=== PATIENT | female | born 1965 | race Caucasian/White ===

== ENCOUNTER 2022-12-24 18:36 | Emergency (ER) | payer BC ==
--- OUTSIDE RECORDS SUMMARY | 2022-12-24 18:39 | XMS REPORT | Continuity of Care Document ---
:1965 Author Organization [facility] t Address [address] [place] [id number] Care Team Providers Name Role Phone Bell Del Cid Attending Clinician Unavailable Ellen Attending Clinician Unavailable Referred, Self Attending Clinician Unavailable Antonia Gudino Attending Clinician [phone] Ameya Nagy Attending Clinician Unavailable Bell Del Cid Attending Clinician [phone] Ameya Nagy Admitting Clinician Unavailable Ellen Admitting Clinician Unavailable Tramaine Arroyo Admitting Clinician Unavailable Physician, No Primary or Family Admitting Clinician Unavaila ble Payers Payer Name Policy Type Policy Number Effective Date Expiration Date [place] [id number] 2022 00:00:00 [place] Problems Condition Condition Condition Status Onset Resolution Last Treating Co mments Source Name Details Category Date Date Treatment Clinician Date Constipati Constipati Problem Active 2020-06 [facility] 00:00: 00 Bladder Bladder Problem Active 2020-06 [facility] muscle Muscle 2-10 Medical dysfunctio Dysfunctio 00:00: n - n - 00 overactive Overactive Allergies, Adverse Reactions, Alerts Allergy Allergy Status Severity Reaction(s) Onset Inactive Treating Comm ents Source Name Type Date Date Clinician No Known DA Active U [facility] [place] [facility] No Known DA Active [facility] Cont[facility] 01-18 [facility] No Known DA Active U [facility] Drug 01-18 [facility] No Known DA Active U [facility] Food 01-18 [facility] No Known DA Active U [facility] Other 01-18 [facility] No Known DA Active U [facility] Drug 12-16 [facility] 00:[facility]: [facility] SEASONAL Allergy Active Mild Headache [facility] (91) to Medical substanc e Social History Smoking Status Start Date Stop Date Source Never Smoker [facility] Medications Ordered Filled Start Stop Current Ordering Indication Dosage Frequency Signature Comments Components Source Medication Medication Date Date Medication? Clinician (SIG) Name Name biotin biotin No biotin [facility] Calcium 500 Calcium 500 No Calcium [facility] 500 [facility] estradiol 2 estradiol 2 No 1 Q1D estradiol [facility] mg tablet 1 mg tablet 1 2 mg M edical tablet tablet tablet 1 every day every day tablet by oral by oral every day route. route. by oral route. Gemtesa 75 Gemtesa 75 No 1 Q1D Gemtesa 75 [facility] mg tablet mg tablet mg tablet Medical Take 1 Take 1 Take 1 tablet tablet tablet every day every day every day by oral by oral by oral route for route for route for 90 days. 90 days. 90 days. iron 65 mg iron 65 mg No 1 Q56H iron 65 mg [facility] tablet Take tablet Take tablet Medical 1 tablet 3 1 tablet 3 Take 1 times a times a tablet 3 week by week by times a oral route. oral route. week by oral route. multivitami multivitami No multivitam [facility] n in Medical progesteron progesteron No progestero [facility] e e ne Medical micronized micronized micronized 100 mg 100 mg 100 mg capsule capsule capsule terbinafine terbinafine No terbinafin [facility] HCl 250 mg HCl 250 mg e HCl 250 Medical tablet tablet mg tablet Vitamin D2 Vitamin D2 No Vitamin D2 [facility] 1,250 mcg 1,250 mcg 1,250 mcg Medical (50,000 (50,000 (50,000 unit) unit) unit) capsule capsule capsule Take by Take by Take by oral route. oral route. oral route. Zyrtec 10 Zyrtec 10 No 1capsul Q1D Zyrtec 10 [facility] mg capsule mg capsule e(s) mg capsule Medical Take 1 Take 1 Take 1 capsule capsule capsule every day every day every day by oral by oral by oral route. route. route. biotin biotin No biotin [facility] Calcium 500 Calcium 500 No Calcium [facility] 500 [facility] estradiol 2 estradiol 2 No 1 Q1D estradiol [facility] mg tablet 1 mg tablet 1 2 mg M edical tablet tablet tablet 1 every day every day tablet by oral by oral every day route. route. by oral route. Gemtesa 75 Gemtesa 75 No 1 Q1D Gemtesa 75 [facility] mg tablet mg tablet mg tablet Medical Take 1 Take 1 Take 1 tablet tablet tablet every day every day every day by oral by oral by oral route for route for route for 90 days. 90 days. 90 days. iron 65 mg iron 65 mg No 1 Q56H iron 65 mg [facility] tablet Take tablet Take tablet Medical 1 tablet 3 1 tablet 3 Take 1 times a times a tablet 3 week by week by times a oral route. oral route. week by oral route. multivitami multivitami No multivitam [facility] in Medical progesteron progesteron No progestero [facility] ne Medical micronized micronized micronized 100 mg 100 mg 100 mg capsule capsule capsule Vitamin D2 Vitamin D2 No Vitamin D2 [facility] 1,250 mcg 1,250 mcg 1,250 mcg Medical (50,000 (50,000 (50,000 unit) unit) unit) capsule capsule capsule Take by Take by Take by oral route. oral route. oral route. Zyrtec 10 Zyrtec 10 No 1capsul Q1D Zyrtec 10 [facility] mg capsule mg capsule e(s) mg capsule Medical Take 1 Take 1 Take 1 capsule capsule capsule every day every day every day by oral by oral by oral route. route. route. biotin biotin No biotin [facility] Calcium 500 Calcium 500 No Calcium [facility] 500 Medical estradiol 2 estradiol 2 No 1 Q1D estradiol [facility] mg tablet 1 mg tablet 1 2 mg M edical tablet tablet tablet 1 every day every day tablet by oral by oral every day route. route. by oral route. Gemtesa 75 Gemtesa 75 No Gemtesa 75 [facility] mg tablet mg tablet mg tablet Medical Take 1 Take 1 Take 1 tablet tablet tablet every day every day every day by oral by oral by oral route for route for route for 90 days. 90 days. 90 days. hydrocodone hydrocodone No hydrocodon [facility] 5 5 e 5 Medical mg-acetamin mg-acetamin mg-acetami ophen 325 ophen 325 nophen 325 mg tablet mg tablet mg tablet iron 65 mg iron 65 mg No 1 Q56H iron 65 mg [facility] tablet Take tablet Take tablet Medical 1 tablet 3 1 tablet 3 Take 1 times a times a tablet 3 week by week by times a oral route. oral route. week by oral route. multivitami multivitami No multivitam [facility] n n in Medical progesteron progesteron No progestero [facility] e [facility] ne Medical micronized micronized micronized 100 mg 100 mg 100 mg capsule capsule capsule Vitamin D2 Vitamin D2 No Vitamin D2 [facility] 1,250 mcg 1,250 mcg 1,250 mcg Medical (50,000 (50,000 (50,000 unit) unit) unit) capsule capsule capsule Take by Take by Take by oral route. oral route. oral route. Zyrtec 10 Zyrtec 10 No 1capsul Q1D Zyrtec 10 [facility] mg capsule mg capsule e(s) mg capsule Medical Take 1 Take 1 Take 1 capsule capsule capsule every day every day every day by oral by oral by oral route. route. route. Vital Signs Vital Name Observation Time Observation Value Comments Source BP Systolic 2021-11-17 00:00:00 129 mm[Hg] [facility] Body Weight 2021-11-17 00:00:00 163 [lb_av] [facility] BP Diastolic 2021-11-17 00:00:00 75 mm[Hg] [facility] Height 2021-11-17 00:00:00 65 [in_i] [facility] BMI (Body Mass Index) 2021-11-17 00:00:00 27.1 kg/m2 [facility] BP Diastolic 2021-07-02 00:00:00 75 mm[Hg] [facility] Height 2021-07-02 00:00:00 65 [in_i] [facility] BMI (Body Mass Index) 2021-07-02 00:00:00 23.6 kg/m2 [facility] Systolic 2021-07-02 00:00:00 136 mm[Hg] [facility] Body Weight 2021-07-02 00:00:00 142 [lb_av] [facility] BP Diastolic 2021-05-29 00:00:00 86 mm[Hg] [facility] Height 2021-05-29 00:00:00 65 [in_i] [facility] BMI (Body Mass Index) 2021-05-29 00:00:00 28.3 kg/m2 [facility] BP Systolic 2021-05-29 00:00:00 127 mm[Hg] [facility] Body Weight 2021-05-29 00:00:00 170 [lb_av] [facility] Procedures Procedure Date / Time Performed Performing Clinician Sour e Cytourethroscopy (Surg) 2021-10-29 00:00:00 [facility] Gastric Bypass for Obesity 2015-06-20 00:00:00 [facility] Breast Surgery - Reduction 2006-12-18 00:00:00 [facility] Breast Biopsy [facility] Plan of Care Planned Activity Planned Date Details Comments Source Diagnostic Test 2021-05-29 00:00:00 culture, urine [code [facility] Pending = culture, urine] Diagnostic Test 2021-05-29 00:00:00 urinalysis, complete [facility] Pending [code = urinalysis, complete] Encounters Start End Encounter Admission Attending Care Care Encounter Source Date/Time Date/Time Type Type Clinicians Facility Department ID 2021-08-18 [id number] 14:44:00 [place] [address] [facility] 2022-11-29 2022-11-29 Outpatient [facility] PRIV PRIV [id number] [facility] 00:00:00 00:00:00 _Cathey [id number] Medica l 2022-11-27 2022-11-27 Outpatient [facility] PRIV PRIV [id number] [facility] 00:00:00 00:00:00 _Cathey [id number] Medica l 2022-11-16 2022-11-16 Outpatient [facility] PRIV PRIV [id number] [facility] 00:00:00 00:00:00 _[place]athe[place] [id number] Medica l 2022-11-16 2022-11-16 Outpatient [facility] PRIV PRIV 231 [id number] [facility] 00:00:00 00:00:00 _[place]athe[place] [id number] Medica l 2022-11-12 2022-11-12 Outpatient [facility] PRIV PRIV [id number] [facility] 00:00:00 00:00:00 _Cathey [id number] Medica l 2022-11-09 2022-11-09 Outpatient [facility] PRIV PRIV 231 [id number] [facility] 00:00:00 00:00:00 _Cathey [id number] Medica l 2022-10-15 2022-10-15 Outpatient [facility] PRIV PRIV [id number] [facility] 00:00:00 00:00:00 _Cathey [id number] Medica l 2022-10-15 2022-10-15 Outpatient [facility] PRIV PRIV [id number] [facility] 00:00:00 00:00:00 _[place]athey [id number] Medica l 2022-07-19 2022-07-19 Outpatient EL Referred, HCAPM ANNETTA [id number] [facility] 12:00:00 12:00:[address] 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 [phone] 2021-11-13 2021-11-13 Outpatient [facility] PRIV PRIV [id number] [facility] 12:46:00 12:46:00 _Cathey [id number] Medica l 2021-10-29 2021-10-30 Inpatient Ameya Murrieta [facility] MEDI.01 [id number] [facility] 07:17:00 11:43:00 [facility] 2021-10-19 2021-10-19 Outpatient [facility] PRIV PRIV [id number] [facility] 05:08:00 05:08:00 _Cathey [id number] Medica l 2021-10-13 2021-10-13 Outpatient [facility] PRIV PRIV [id number] [facility] 05:51:00 05:51:00 _Cathey [id number] Medica l 2021-07-27 2021-08-17 [facility] [id number] 08:59:00 00:00:00 Bell [facility] 2021-07-14 2021-07-20 Outpatient BERTHA Del Cid [facility] [id number] [facility] 10:52:00 00:00:00 Bell [facility] 2021-07-18 2021-07-18 Outpatient [facility] PRIV PRIV [id number] [facility] 04:52:00 04:52:00 _Cathey [id number] Medica l 2021-07-16 2021-07-16 Outpatient Ameya Murrieta [facility] ANNET[place] LA0 [id number] [facility] 12:00:00 12:00:[address] [facility] 2021-07-03 2021-07-03 Outpatient [facility] PRIV PRIV [id number] [facility] 10:44:00 10:44:00 _Cathey [id number] Medica l 2021-07-02 2021-07-02 Outpatient [facility] PRIV PRIV [id number] [facility] 01:59:00 01:59:00 _Cathey [id number] Medica l 2021-07-02 2021-07-02 Outpatient Maria Eugenia, PRIV PRIV [id number] 00:00:00 00:00:00 Bell [id number] Marci [id number] 2021-07-02 2021-07-02 Bell [facility] 00:00:00 00:00:00 [facility] Maria Eugenia, [facility] : [address], [address]* [address], [place] [address] , Ph. [phone] 2021-07-01 2021-07-01 Outpatient [facility] PRIV PRIV [id number] [facility] 03:10:00 03:10:00 _Cathey [id number] Medica l 2021-06-27 2021-06-27 Outpatient [facility] PRIV PRIV [id number] [facility] 11:30:00 11:30:00 _Cathey [id number] Medica l 2021-06-04 2021-06-04 Inpatient Ameya Murrieta [facility] [id number] [facility] 10:00:00 10:00:00 [facility] 2021-06-04 2021-06-04 Outpatient [facility] PRIV PRIV [id number] [facility] 02:53:00 02:53:00 _Cathey [id number] Medica l 2021-05-29 2021-05-29 Outpatient [facility] PRIV PRIV [id number] [facility] 12:38:00 12:38:00 _Cathey [id number] Medica l 2021-05-29 2021-05-29 Bell [facility] [id number] [facility] 00:00:00 00:00:00 [facility] Maria Eugenia, [facility] : [address], Office* [address], [place] [address] , Ph. [phone] 2021-05-29 2021-05-29 Outpatient Maria Eugenia, PRIV PRIV [id number] 00:00:00 00:00:00 Bell [id number] Amrci [id number] 2021-05-28 2021-05-28 Outpatient [facility] PRIV PRIV [id number] [facility] 12:02:00 12:02:00 _Claudetteaddie [id number] Medica l 2021-05-25 2021-05-25 [place] [id number] [facility] 12:37:00 12:37:00 _Claudetteaddie [id number] Medica l 2020-07-14 2020-07-14 Outpatient Ameya Murrieta [facility] [place] LA0 [id number] [facility] 12:00:00 12:00:[address] [facility] 2019-07-09 2019-07-09 Outpatient Ameya Murrieta [facility] [place]0 [id number] [facility] 12:00:00 12:00:[address] [facility] Results Test Description Test Time Test Comments Results Result Comments Source SURGICAL 2021-10-30 16:45:00 Test Item Value Reference Range Interpretation Commraul nts SURGICAL RUN (test DATE: 10/30/21 [facility] PAGE 1 RUN TIME: 1645 Specimen Inquiry RUN USER: INTERFACE code = JOANNE EM) NT: ALFREDO RANGEL LOC: JHON U #: [id number] AGE/SX: 55/F ROOM: [facility] RE10/29/21REG DR: Arianna Nagy III, MD : 67 BED: A DIS: 10/30/21 STATUS: DIS Johan TLOC: SPEC #: [id number] RECD: 10/18 STATUS: ALINE AN #: [id number] MICHAELA: 10/29/[address] [facility] [address]: Ameya aNgy III, MD ENTERED: 10/29/21 SP TYPE: SURGICAL OTHR DR: Tramaine Arroyo MD ORDERED: ANATOMIC SPEC, SPEC TRACK, [id number] COPIES TO: Ameya Nagy III, MD [address] [facility] [address] [place] [address] Marva Arroyo MD [address] [facility] [address] [place] [address] PROCEDURES: [id number] (10/30/21- 160) TISSUES: A. UTERUS - UTERUS, CERVIX, BILATERL TUBES OVARIES FINAL DIAGNOSIS UTERUS, CERV IX, BILATERAL TUBES AND OVARIES, HYSTERECTOMY WITH BILATERAL SALPINGOOOPHORECTOMY:- 129 g ahmet uterus- disordered proliferative endometrium; negative for hyperplasia or malignancy-ex tensive adenomyosis- leiomyomata, 1.1 cm and 2.1 cm each (subserosal and intramural)- mild chroni c cervicitis; negative for dysplasia or malignancy- bilateral ovaries with corpora albicantia and physiologic changes-bilateral fallopian tubes with marked congestion, edema and reactive changes G JIAN DESCRIPTION Specimen received in formalin, labeled with patient's name, MRN, date of and uterus,cervix, bilateral tubes and ovaries. Specimen consists of a hysterectomy s pecimen withbilateral adnexa weighing in aggregate 129 g. Uterus is 9.1 cm in length from fundus todistal most portion of ectocervix, 4.9 cm in maximum cornu to cornu with and 4.1 cmanterop osteriorly. Is serosa is matias-brown smooth. Uterine contour is slightly distortedby bulging nodule. Cervix is 3.1 cm in length, os is slit- like and 1.6 cm across. Mucosaat the ectocer vix is congested. Right fallopian tube with fimbria is 5.7 cm in length andup to 0.5 cm in di ameter. Serosa is matias-brown to dark red smooth. Sectioning reveals apatent lumen. Right ovary i s matias-pink firm measuring 2.1 x 1.5 x 1.1 cm in maximumdimensions. Sectioning reveals matias-pink and focally yellow surface. Left fallopian tubewith fimbria is 6.1 cm in length and up to 0.5 cm i n diameter. Serosa is matias-brown to darkred smooth. Sectioning reveals a patent lumen. A 1.1 cm in greatest dimension soft matias CONTINUED ON NEXT PAGE RUN DATE: 10/30/21 [facility] PAGE 2 RUN TIME: 1645 Specimen Inquiry RUN USER: INTERFACE SPEC #: [id number] PATIENT: DANILOALFREDO SHERRIE #[id number] (Continued) ------ GROSS DESCRIPTION (Co ntinued) paratubal cyst noted containing clear fluid. Cyst is thin-walled. Left ovary is matias pinkfrom measuring 2.1 x 1.2 x 0.9 cm in maximum dimensions. Sectioning reveals matias pink andfocally pale surface. Cervical canal has a matias rugated appearance. Endometrial cavity is4.3 cm in length and 1.7 cm in maximum width. Endometrium is matias-pink smooth and 0.1 cm inthickness. Endo metrial cavity is distorted by a well-circumscribed matias-white firm nodules.Two well-circumscrib ed firm matias- white nodules noted measuring 1.1 cm and 2.1 cm ingreatest dimension. Cut humphreys rfaces are matias whorled. Nodules are subserosal and intramural. Myometrium is matias-pink and u p to 1.5 cm in thickness. Manager Lan sections of uteruswith entire bilateral adnexa are submitted as follows: A1 anterior cervix A2 posterior cervix A3 anterior endomyometrium A4 p osterior endomyometrium A5 smaller nodule A6 larger nodule A7-A14 right fallopian tube and ova [id number] left fallopian tube and ovaryTechnical component performed at [facility],[address], [place] [address] Unless gross only, the diagnosis is based upon microscopic examination .Immunohistochemistry: This test was developed and its performance characteristicsdetermined by this laboratory. It has not been approved nor does it need approval by [place] FDA. Appropriate po sitive and negative controls are reviewed and judged to beacceptable. This laboratory is certified under the Clinical Laboratory ImprovementAmendments (CLIA-88) as qualified to perform high co mplexity clinical laboratory testing. CLINICAL INFORMATION 10/29/21, OUT OF BODY @ 0840, IN FORMA ROMAN 0907, MENORRHAGIA, PELVIC PAIN, FAMILY HISTORY OFOVARIAN CANCER. -- Signed SIGNATURE ON FILE Heavenly Gary 10/30/21 1645 END OF REPORT [facility] [id number] 05:27:00 Test Item Value Reference Range Interpretation Comments HEMOGLOBIN (test code = HGB) 10.9 g/dL 10.1-13.8 N HEMATOCRIT (test code = HCT) 32.2 % 32.5-41.8 L AB HIV 1 21:07:00 Test Item Value Reference Range Interpretation Comments AB HIV 1 2 (test NONREACTIVE NONREACTIVE Done by [facility] [employer] code = [id number]) 4th Gen HIV Ag/Ab Combo Screen BASIC METABOLIC [id number] 16:06:00 Test Item Value Reference Range Interpretation Comments SODIUM (test code = NA) 139 mEq/L 135-145 N POTASSIUM (test code = K) 4.5 mEq/L 3.5-5.0 N CHLORIDE (test code = CL) 102 mEq/L 100-115 N CARBON DIOXIDE (test code = CO2) 27 mEq/L 22-31 N ANION GAP (test code = GAP) 14.30 10-20 N GLUCOSE (test code = GLU) 71 mg/dL 65-110 N BLOOD UREA NITROGEN (test code = 12 mg/dL 7-18 N BUN) CREATININE (test code = CREAT) 0.7 mg/dL 0.5-1.0 N CALCIUM (test code = CA) 8.9 mg/dL 8.4-10.2 N GLOMERULAR FILTRATION RATE (test 87 ml/min >60 N code = GFR) HCG SERUM [id number] 16:06:00 Test Item Value Reference Range Interpretation Comments HCG SERUM QUAL (test code = HCGQL) NEGATIVE CBC W/AUTO [id number] 15:59:00 Test Item Value Reference Range Interpretation Comments WHITE BLOOD CELL (test code = WBC) 7.7 K/mm3 6.5-12.3 N RED BLOOD CELL (test code = RBC) 4.22 M/mm3 3.51-4.69 N HEMOGLOBIN (test code = HGB) 12.3 g/dL 10.1-13.8 N HEMATOCRIT (test code = HCT) 38.5 % 32.5-41.8 N MEAN CELL VOLUME (test code = MCV) 91.2 fL 84.6-96.6 N MEAN CELL HGB (test code = MCH) 29.1 pg 27.3-33.9 N MEAN CELL HGB CONCETRATION (test 31.9 gm/dL 32.0-34.2 L code = MCHC) RED CELL DISTRIBUTION WIDTH (test 12.6 % 12.2-16.3 N code = RDW) PLATELET COUNT (test code = PLT) 240 K/mm3 134-363 N MEAN PLATELET VOLUME (test code = 12.4 fL 9.2-12.7 N MPV) NEUTROPHIL % (test code = NT%) 60.3 % 57.9-77.3 N LYMPHOCYTE % (test code = LY%) 29.1 % 14.5-29.7 N MONOCYTE % (test code = MO%) 8.0 % 3.6-10.2 N EOSINOPHIL % (test code = EO%) 1.3 % 0.0-3.0 N BASOPHIL % (test code = BA%) 0.9 % 0.1-0.9 N NEUTROPHIL # (test code = NT#) 4.6 K/mm3 LYMPHOCYTE # (test code = LY#) 2.2 K/mm3 MONOCYTE # (test code = MO#) 0.6 K/mm3 EOSINOPHIL # (test code = EO#) 0.10 K/mm3 BASOPHIL # (test code = BA#) 0.1 K/mm3 RBC MORPHOLOGY REQUIRED (test code NORMAL NORMAL = RBCM) PLATELET MORPHOLOGY REQUIRED (test NORMAL NORMAL code = PLTMR) COVID 19 Asymptomatic IH [id number] 13:34:00 Test Item Value Reference Range Interpretation Comments COVID 19 NEGATIVE NEGATIVE This test has b een Asymptomatic IH AG authorize d only for the (test code = detection ofpro teins from COVNONPUIAG) SARS-CoV-2, not for any other viruses orpathogens. Ne gative results should be treated as presumptive andconfirmed wi th a molecular assay , if necessary for patientmanageme nt. Negative result s do not rule out COVID- 19 andshould not b e used as the sole basis for treatment orpat ient management deci sions, including infec tion controldecision s. Negative result s should be considered i n thecontext of a patient's recent exposure s, history and thepresence of clinical signs and symptoms consis tent withCOVID-19. T his test has not been FD A cleared or approved; th e test hasbeen authorsana parker by FDA under an Emerge ncy Use Authorization(E UA) for use by laborato britany certified under the CLIA thatmeet the re quirements to perform mode rate, high or waivedcomple xity tests. This sultana t is authorized for use at thePoint of Car e (POC), i.e., in patien t care settingsoperati ng under a CLIA Certificat e of Waiver, Certifi aimee ofCompliance, o r Certificate of Accreditation. This test is only authori elena for the duration of thedeclaration that circumstances e xist justifying theauthorizatio n of emergency use o f in vitro diagnostic test sfor detection and/o r diagnosis of CO VID-19 under Xewpxls57 4(b)(1) of the Act, 21 U.S .C. 360bbb-3(b)(1), unless theauthorizatio n is terminated or r evoked sooner. URINALYSIS [id number] 13:15:00 Test Item Value Reference Range Interpretation Comments UA COLOR (test code = COLU) YELLOW YELLOW UA APPEARANCE (test code = CLEAR CLEAR APPU) UA GLUCOSE DIPSTICK (test code NEGATIVE NEG = DGLUU) UA BILIRUBIN DIPSTICK (test NEGATIVE NEG code = BILU) UA KETONE DIPSTICK (test code NEGATIVE NEG = KETU) UA SPECIFIC GRAVITY (test code 1.002 1.001-1.035 N = SGU) UA BLOOD DIPSTICK (test code = 1+ NEG A SHAHBAZ) UA PH DIPSTICK (test code = 7.0 5-9 HSARA) UA PROTEIN DIPSTICK (test code NEGATIVE NEG = PROU) UA UROBILINIOGEN DIPSTICK NEGATIVE mg/dL NEG (test code = URO) UA NITRITE DIPSTICK (test code NEG NEG = MARIVEL) UA LEUKOCYTE ESTERASE DIPSTICK NEG NEG (test code = LEUU) UA WBC (test code = WBCU) 0-2 #/hpf NONE SEEN UA RBC (test code = RBCU) 0-2 #/hpf NONE SEEN UA EPITHELIAL CELLS (test code RARE #/HPF RARE-FEW = EPIU) UA BACTERIA (test code = BACU) RARE /HPF RARE-FEW URINE SAMPLE: CLEAN CATCH Notes Date/Time Note Provider Source 2021-10-30 08:43:00-00:00 [facility] Gynecology Post Prog Note REPORT#:[id number] REPORT STATUS: Signed DATE:10/30/21 TIME: 842 PATIENT: ALFREDO RANGEL UNIT #: [id number] ROOM/BED: [facility]-A : 67 AGE: 55 SEX: F ATTEND: Ameya Nagy III, MD ADM AUTHOR: Ameya Nagy III, MD * ALL edits or amendments must be made on the [employer]/computer document * General Post-op: post surgery rounds Status post: [facility] Subjective Patient reports: Yes: ambulating, flatus/felicia l movement, pain controlled, voiding/urinating. No: complaints, abdominal pain, chills, feve r, headache, heartburn, nausea, pelvic pain, tolerating diet, vaginal bleeding, vomitin g. Objective General VS/I O: Last Documented: Result Date Time Pulse Ox 96 10/30 729 B/P 124/71 10/30 729 B/P Mean 88.7 10/30 729 Temp 98.4 10/30 729 Pulse 58 10/30 729 Resp 18 10/30 729 O2 Delivery Room air 10/30 0421 O2 Flow Rate 2 10/29 1115 24 hour I O ending at 0700: 10/29 1900 10/30 0700 Intake Total 2050.00 1700.00 Output Total 1150 1300 Balance 900.00 400.00 Intake, IV 1850.00 500.00 Intake, Oral 200 1200 Output, 50 Estimated Blood Loss Output, Urine 1100 1300 Patient 162 lb Weight Weight Standing scale Measurement Method PATIENT WEIGHT: Weight (lb): 161 Weight (oz): 9.58 Weight (kg): 73.300 Physical Exam Wound/incision: Location: Abd wounds clean dry Abdomen: non-tender, soft Extremities: full range of motion, moves all, no calf tenderness, no edema Diagnosis, Assessment Plan Free Text A P: Post op rounds doing well Patient to going home today voiding well RYC 2 weeks at 0845 [facility] #:[id number] END OF REPORT 2021-10-29 13:11:00-00:00 [facility] ([facility]) Gynecology Post Prog Note REPORT#:[id number] REPORT STATUS: Signed DATE:10/29/21 TIME: 131 PATIENT: ALFREDO RANGEL UNIT #: [id number] ROOM/BED: [address] : 66 AGE: 55 SEX: F ATTEND: Ameya Nagy III, MD ADM AUTHOR: Ameya Nagy III, MD * ALL edits or amendments must be made on the [employer]/computer document * General ORM Surgeries: Surgery Date and Time: 10/29/2021 0730 Primary Procedure: THREE PUNCTURE LAPAROSCOPIC TOTAL Secondary Procedure: CYSTOSCOPY WITH PROCEDURE Post-op: post surgery rounds Status post: TLH BSO Subjective Patient reports: Yes: complaints, pain controlled, pelvic pain, t olerating diet. No: abdominal pain, ambulating, chills, fever, flatus/bowel mo vement, headache, heartburn, nausea, vaginal bleeding, voiding/urinating, vom iting. Objective General VS/I O: Last Documented: Result Date Time O2 Delivery Nasal cannula 10/29 1115 O2 Flow Rate 2 10/29 1115 Pulse Ox 96 10/29 1058 B/P 112/71 10/29 1058 B/P Mean 84.7 10/29 1058 Temp 98.1 10/29 1058 Pulse 63 10/29 1058 Resp 16 10/29 1058 PATIENT WEIGHT: Weight (lb): 161 Weight (oz): 9.58 Weight (kg): 73.300 Physical Exam General appearance: alert, awake, oriented, no a cute distress, pleasant, conversational, mental status normal, no respira tory distress Wound/incision: Location: Abd dry dressing intact Abdomen: non-tender, soft Diagnosis, Assessment Plan Free Text A P: Post op rounds doing well If patient can void and is stable she can go radha e today at 1314 [facility] #:[id number] END OF REPORT 2021-10-29 09:16:00-00:00 [id number] [facility] [address], [place] [address] PATIENT NAME: ALFREDO RANGEL ADMIT DATE: 10/29 ACCOUNT NO: [id number] ROOM NO: .2602 AGE: 55 SEX: F ADMITTING PHYSICIAN: Ameya Nagy III, MD ATTENDING PHYSICIAN: Ameya Nagy III, MD OPERATION DATE: 10/29/2021 PREOPERATIVE DIAGNOSES: 1. Abnormal uterine bleeding. 2. Pelvic pain. 3. Overactive bladder. POSTOPERATIVE DIAGNOSES: 1. Abnormal uterine bleeding. 2. Pelvic pain. 3. Overactive bladder. PROCEDURE: Cystourethroscopy. SURGEON: Bell Del Cid MD DIRECTOR ACCOUNT MANAGEMENT: ANESTHESIA: General endotracheal and local. ESTIMATED BLOOD LOSS: Zero for this portion of t he procedure. INDICATION: Ms. Rangel is a 55-year-old female who was undergoing a laparoscopic hysterectomy. She also has a history of overacti ve bladder. At the end of the procedure, it was asked that cystourethroscopy b e performed to evaluate the integrity of the lower urinary tract. FINDINGS: Cystourethroscopy revealed ureteral orifices in the normal anatomical location with excellent bilateral ureteral efflu x. There was no evidence of bladder lesions or injury. The urethra was noted to be intact. PROCEDURE IN DETAIL: The patient was taken to e operating room, she was prepped and draped in the ua sterile fashion in a dorsal lithotomy position. A Tovar catheter was placed through the urethral meatus. Initially, a total laparoscopic hysterectomy and bilateral salpingo-oophorectomy was performed by Dr. Mu Nagy. At the end of the procedur e, it was asked that cystourethroscopy be performed to evaluate the integrity of the lo wer urinary tract. Tovar catheter was removed. Cystourethroscopy wa s then performed with a 70-degree cystoscope revealing the above noted f indings. A complete bladder survey with full bladder dis tention was performed. Tovar catheter was replaced. The patient tolerated the procedure well. Sponge , lap, and needle counts were PATIENT NAME: ALFREDO RANGEL [id number] correct x2. She was taken to the recovery room i n stable condition. Dictated By: Bell Del Cid MD WT: OP:F.HIM/CATGI/NTS Conf#: [id number]/DID#: [id number] Authenticated by Bell Del Cid MD On 11/11/19 09:36:29 AM at 0936 PATIENT NAME: ALFREDO RANGEL [id number] 08:58:00-00:00 [id number] [facility] [address] [place] [address] PATIENT NAME: ALFREDO RANGEL ADMIT DATE: 10/29 ACCOUNT NO: [id number] ROOM NO: .2602 AGE: 55 SEX: F ADMITTING PHYSICIAN: Ameya Nagy III, MD ATTENDING PHYSICIAN: Ameya Nagy III, MD OPERATION DATE: 10/29/2021 ADMITTING DIAGNOSES: Family history of o varian cancer, pelvic pain, occasional menorrhagia. POSTOPERATIVE DIAGNOSES: Family history of ovari an cancer, pelvic pain, occasional menorrhagia. Path pending. SURGEON: Ameya Nagy III, MD DIRECTOR ACCOUNT MANAGEMENT: Dr. Del Cid ANESTHESIA: General LMA. PROCEDURE: TLH-BSO and cystoscopy. Maggie wills was Dr. Del Cid who also performed cystoscopy. FINDINGS: At time of diagnostic scope, the follo wing findings noted. The uterus was upper limits of normal size. Both tub es and ovaries were normal. Cul-de-sac normal. Bowel normal. Upper abdomen n ormal. PROCEDURE IN DETAIL: The pat ient was brought to the operating room, prepped and draped in sterile manner for vaginal and abdominal procedure. Attention turned to vaginal area where a Tovar catheter w as placed draining clear urine. Cervix was identified, grasped with single tooth tenaculum on the anterior lip, sounded to 8 cm. A JOSE 3.5/8 was placed without difficul ty by Dr. Del Cid. Attention then turned to the abdominal area where 0.25% Marcaine was injected within the umbilicus. Vertical incision was made wi thin the umbilicus approximately 5 mm. Veress needle placed without free flow of fluid. Pneumoperitoneum with 2.5 liters created without difficulty. The laparosco pe and trocar placed under direct vision. Previous findings were noted with the aid of add itional 5-mm trocars in the right and left side of the abdominal wall, the p rocedure was begun. Round ligaments were identified on each side and taken with Harmonic scalpel, creating a bladder flap. The infundibulopelvic was then t aken bilaterally with cautery and Harmonic energy. Dissection was carried down to the level of uterines. Uterines were cauterized bilaterally and then ex cised with Harmonic energy. Circumferential incision was made around the cup . Uterus delivered vaginally. The vaginal cuff was somewhat wet and there was a small amount of oozing from the left uterosacral area. This was re-cauterize d without difficulty. A 2-0 PDS was placed vaginally V-Loc and this closed the vaginal cuff with excellent hemostasis with a small amou nt of cautery done again around the left uterosacral PATIENT NAME: ALFREDO RANGEL [id number] ligament. Dr. Del Cid then performed a cystoscopy revealed bilateral ureteral jets. Estimated blood loss was 50 mL. Th e patient tolerated the procedure well and went to the recovery room in good co ndition. Sponge and needle counts were correct at the end of the case. Dictated By: Ameya Nagy III, MD WT: OP:FSIXTO/NESSA/ISAK Conf#: [id number]/DID#: [id number] Authenticated by Ameya Nagy MD On 11/03/2021 09:24:30 AM Electronically Signed by Ameya Nagy III, MD o n 11/03/21 at 0924 PATIENT NAME: ALFREDO RANGEL [id number] 09:28:00-00:00 [id number] [facility] [address] [place], [place] [address] PATIENT NAME: ALFREDO RANGEL ADMIT DATE: 10/18 08/11 ACCOUNT NO: [id number] ROOM NO: [facility] AGE: 55 SEX: F ADMITTING PHYSICIAN: Ameya Nagy III, MD ATTENDING PHYSICIAN: Ameya Nagy III, MD ADMISSION DATE: 10/29/2021 ADMITTING DIAGNOSES: Menorrhagia, pelvic pain an d family history of ovarian cancer. HISTORY OF PRESENT ILLNESS: The patient is a 55- year-old 2, para 2, last menstrual period, she i s menopausal with occasional breakthrough bleeding, currently on estrogen and progesterone. She pres ents with occasional heavy flow. There is a family history of ovarian cance r. She also has mild stress incontinence and urge incontinence, which is gray ng treated by urogynecology. The patient wishes to have a hysterectomy for family history and also occasional pelvic pain. ALLERGIES: NONE KNOWN. PAST SURGICAL HISTORY: Gastric bypass, breast au gmentation, elbow surgery hysteroscope, D and C in 2017. CURRENT MEDICATIONS: Estrogen progesterone and G emtesa 75 mg for bladder control. FAMILY HISTORY: Positive for ovarian cancer. Neg ative for colon cancer, osteoporosis, and breast cancer. LABORATORY DATA: Last Pap smear 2020, was negati ve. Last mammogram 2019, was also negative. PHYSICAL EXAMINATION: VITAL SIGNS: Blood pressure 120/80, weight 167. GENERAL: Well-developed, well-nourished [place] n female, in no apparent distress. HEENT: Normocephalic. PERRLA. EOMs intact. Scler ae nonicteric. Oropharynx clear. HEART: Regular rate and rhythm. No murmur or gal lop. LUNGS: Clear. EXTREMITIES: No clubbing, cyanosis, or edema. BREASTS: Without tender, mass, or discharge. ABDOMEN: Bowel sounds are positive. Abdomen prev ious scars noted. No masses palpated. PELVIS: External BUS, normal female. Vagina pink , rugated lesions. Cervix without lesions. Uterus is upper limits of rosendo l size and nontender. Adnexa is clear. RECTOVAGINAL: Deferred. PATIENT NAME: ALFREDO RANGEL [id number] IMPRESSION: Menorrhagia, mild pelvic pain, famil y history of ovarian cancer. PLAN: TLH-BSO. Informed consent, risks and benef its of the procedure were explained to the patient including the risk of b lood loss, injury to bowel, bladder, ureters; risk of infection. The patient understands these risks and wished to proceed with above operation. I have a nswered all her questions. Dictated By: Ameya Nagy III, MD WT: HP:FSIXTO/NESSA/ISAK Conf#: [id number]/DID#: [id number] Authenticated by Ameya Nagy MD On 10/29/2021 01:18:35 PM Electronically Signed by Ameya Nagy III, MD o n 10/29/21 at 0118 PATIENT NAME: ALFREDO RANGEL [id number] 11:50:00-00:00 [id number] [facility] [address] [address] PATIENT NAME: ALFREDO RANGEL ADMIT DATE: 10/29 ACCOUNT NO: [id number] ROOM NO: F.2602 AGE: 55 SEX: F ADMITTING PHYSICIAN: Ameya Nagy III, MD ATTENDING PHYSICIAN: Ameya Nagy III, MD Order: [id number] Test Reason : PRE-OP Test Date/Time Stamp: TueOct 27 2021 11:50:50 Blood Pressure : / mmHG Vent. Rate : 060 BPM Atrial Rate : 060 BPM P-R Int : 160 ms QRS Dur : 084 ms QT Int : 410 ms P-R-T Axes : 029 044 041 degree s QTc Int : 410 ms Normal sinus rhythm Normal ECG No previous ECGs available Confirmed by MARY OLIVEIRA MD ([id number]) on 11/01/19 12:21:43 PM Referred By: Tramaine Arroyo Confirmed by:MARY PERERA MD Electronically Signed by Mary Oliveira MD on 0 10/31/21 at 1221 PATIENT NAME: ALFREDO RANGEL [id number]
[2022-12-24 20:23] LABS: Specific Gravity 1.008 (1.005-1.030)
[2022-12-24 20:42] LABS: Specific Gravity 1.008 (1.005-1.030); Urine Bacteria <20 /HPF (<20); Urine Bilirubin NEGATIVE (Negative); Urine Blood 3+ (Negative); Urine Clarity Turbid (Clear); Urine Color Light-Yellow (Yellow); Urine Glucose NEGATIVE (Negative); Urine Protein 1+ (Negative); Urine Urobilinogen Normal (Normal); Urine pH 6.5 (5.0-7.0)
[2022-12-24] MEDS ORDERED: MORPHINE 4 MG/ML SYR ONE (21:18)
[2022-12-24] MEDS ORDERED: ONDANSETRON 4 MG/2 ML VIAL ONE (21:18)
[2022-12-24] MEDS ORDERED: NA CHLORIDE 0.9% 1,000 ML ONE (21:18)
[2022-12-24 21:26] LABS: Absolute Lymphocytes (CBC) 1.8 K/uL (0.7-4.9); Hematocrit 35.4 % (36.0-45.0); Lymphocytes % 13.3 % (15.3-44.8); MCV 86.4 fL (80-100); MPV 8.7 fL (7.6-11.3)
[2022-12-24 21:40] LABS: Albumin 3.7 g/dL (3.4-5.0); Bilirubin Total 0.5 mg/dL (0.2-1.0); Potassium 3.7 mEq/L (3.5-5.1); Protein, Total 7.8 g/dL (6.4-8.2)
--- NOTE | 2022-12-24 22:15 | RAD REPORT ---
EXAM DESCRIPTION: CT - Stone Protocol - 12/24/2022 9:36 pm CLINICAL HISTORY: right mid back pain COMPARISON: No comparisons TECHNIQUE: Thin cut axial CT imaging of the abdomen and pelvis was performed without IV contrast. Mu ltiplanar reformats were generated and reviewed. All CT scans are performed using dose optimization technique as appropriate and may include automated exposure control or mA/KV adjustment according to patient size. FINDINGS: No suspicious findings in the lung bases. The liver, spleen, adrenal glands, and pancreas show no suspicious findings. Gallbladder is mildly di stended, without other suspicious features. No evidence of intra or extrahepatic biliary ductal dilat ion. Symmetric renal contour, without suspicious parenchymal findings within limits of noncontrast techniq ue. No hydroureteronephrosis. Nonobstructing right lower pole 2-3 millimeter calculus. Sequelae of Khadra-en-Y gastric bypass. No dilated bowel loops or bowel wall thickening. Colonic diverticulosis. No free air, free fluid or i nflammatory stranding. No hernia, mass or bulky lymphadenopathy. The urinary bladder is without signi ficant finding. No suspicious bony findings. IMPRESSION: No acute intra-abdominal process. Gallbladder is mildly distended without other suspici ous features on CT. Nonobstructing right lower renal pole 2-3 millimeter calculus. Colonic diverticulosis and other incidental findings as above.
--- NOTE | 2022-12-25 00:19 | ER ---
Nurse's Notes [facility] Name: Idalia Rangel Age: 57 yrs Sex: Female : 1965 Arrival Date: 12/24/2022 Time: 18:36 Bed 19 Private MD: Diagnosis: Other cholelithiasis without obstruction;UTI/ Urinary tract infection, site not specified Presentation: 12/24 19:32 Chief complaint: Patient states: "My back is hurting so bad. My stomach hurts I'm real vc1 bloated. Last Tuesday I thought I was getting a UTI and we had an extra Z pack so I took it.". Coronavirus screen: Vaccine status: Patient reports receiving the 2nd dose of the covid vaccine. Plus booster Client denies travel out of the [place] in the last 14 days. At this time, the client does not indicate any symptoms associated with coronavirus-19. Ebola Screen: Patient negative for fever greater than or equal to 101.5 degrees Fahrenheit, and additional compatible Ebola Virus Disease symptoms Patient denies exposure to infectious person. Patient denies travel to an Ebola-affected area in the 21 days before illness onset. No symptoms or risks identified at this time. Initial Sepsis Screen: Does the patient meet any 2 criteria? HR > 90 bpm. No. Patient's initial sepsis screen is negative. Does the patient have a suspected source of infection? Yes: Dysuria/Frequency/Urgency/UTI. Risk Assessment: Do you want to hurt yourself or someone else? Patient reports no desire to harm self or others. Onset of symptoms is unknown. 19:32 Method Of Arrival: Ambulatory vc1 19:32 Acuity: RADHAMES 3 vc1 Triage Assessment: 19:37 General: Appears uncomfortable, Behavior is calm, cooperative, appropriate for age. vc1 Pain: Complains of pain in low back area Pain radiates to right lower quadrant and left lower quadrant Pain currently is 9 out of 10 on a pain scale. EENT: No deficits noted. No signs and/or symptoms were reported regarding the EENT system. Neuro: Level of Consciousness is awake, alert, obeys commands, Oriented to person, place, time, situation, Appropriate for age. Cardiovascular: No deficits noted. Respiratory: Airway is patent Respiratory effort is even, unlabored, Respiratory pattern is regular, symmetrical. GI: No deficits noted. No signs and/or symptoms were reported involving the gastrointestinal system. : Reports burning with urination, cramping, pain in right in left in suprapubic area with urination, urinary frequency. Derm: No deficits noted. No signs and/or symptoms reported regarding the dermatologic system. Musculoskeletal: No deficits noted. No signs and/or symptoms reported regarding the musculoskeletal system. Historical: - Allergies: 19:34 Latex, Natural Rubber; vc1 - Home Meds: 19:34 Estradiol Oral [Active]; Gemtesa 75 mg oral tablet daily [Active]; Neuriva Original vc1 oral [Active]; Zyrtec Oral [Active]; - PMHx: 19:34 None; vc1 - PSHx: 19:34 Gastric Bypass; vc1 - Immunization history:: Client reports receiving the 2nd dose of the Covid vaccine. - Social history:: Smoking status: Patient denies any tobacco usage or history of. Screenin:30 [facility] ED Fall Risk Assessment (Adult) History of falling in the last 3 months, ha1 including since admission No falls in past 3 months (0 pts) Confusion or Disorientation No (0 pts) Intoxicated or Sedated No (0 pts) Impaired Gait No (0 pts) Mobility Assist Device Used No (0 pt) Altered Elimination No (0 pt) Score/Fall Risk Level 0 - 2 = Low Risk Oriented to surroundings, Maintained a safe environment, Educated pt \\T\\ family on fall prevention, incl call for assistance when getting out of bed, Hourly rounding (assess needs \\T\\ fall precautionary measures) done. Abuse screen: Denies threats or abuse. Denies injuries from another. Nutritional screening: No deficits noted. Tuberculosis screening: No symptoms or risk factors identified. Assessment: 20:51 General: Appears uncomfortable, Behavior is calm, cooperative. Pain: Complains of pain ha1 in back Pain does not radiate. Pain currently is 8 out of 10 on a pain scale. Quality of pain is described as throbbing. Neuro: Level of Consciousness is awake, alert, obeys commands, Oriented to person, place, time, situation. Cardiovascular: Patient's skin is warm and dry. Respiratory: Airway is patent Respiratory effort is even, unlabored, Respiratory pattern is regular, symmetrical. GI: No signs and/or symptoms were reported involving the gastrointestinal system. Abdomen is flat, non-distended. : No signs and/or symptoms were reported regarding the genitourinary system. Derm: Skin is pink, warm \\T\\ dry. Musculoskeletal: Circulation, motion, and sensation intact. 21:34 Reassessment: Patient and/or family updated on plan of care and expected duration. Pain ha1 level reassessed. Patient is alert, oriented x 3, equal unlabored respirations, skin warm/dry/pink. going to CT. 22:30 Reassessment: Patient and/or family updated on plan of care and expected duration. Pain ha1 level reassessed. Patient is alert, oriented x 3, equal unlabored respirations, skin warm/dry/pink. pain 3/10 Patient states feeling better. Patient states symptoms have improved. 23:30 Reassessment: Patient and/or family updated on plan of care and expected duration. Pain ha1 level reassessed. Patient is alert, oriented x 3, equal unlabored respirations, skin warm/dry/pink. Patient states feeling better. Patient states symptoms have improved. Vital Signs: 19:32 BP 126 / 88; Pulse 94; Resp 18; Temp 99.1; Pulse Ox 100% ; Weight 77.11 kg; Height 5 vc1 ft. 5 in. ; Pain 10/10; 21:00 BP 157 / 79; Pulse 85; Resp 16; Pulse Ox 98% on R/A; ha1 22:00 BP 133 / 74; Pulse 78; Resp 17 S; Pulse Ox 98% on R/A; ha1 23:00 BP 128 / 74; Pulse 75; Resp 18 S; Pulse Ox 98% on R/A; ha1 12/25 00:00 BP 108 / 74; Pulse 79; Resp 18 S; Pulse Ox 98% on R/A; ha1 12/24 19:32 Body Mass Index 28.29 (77.11 kg, 165.1 cm) vc1 12/24 19:32 Pain Scale: Adult vc1 ED Course: 12/24 18:40 Patient arrived in ED. im 18:58 Alcides Cristina PA is PHCP. cp 18:58 Domenic Patrick MD is Attending Physician. cp 19:30 Patient has correct armband on for positive identification. Placed in gown. Bed in low ha1 position. Call light in reach. Side rails up X 1. 19:34 Triage completed. vc1 19:37 Arm band placed on right wrist. vc1 20:20 Test, Urine Sent. vc1 20:20 Urinalysis w/ reflexes Sent. vc1 20:56 Michaela Villafana, RN is Primary Nurse. ha1 21:37 CT Stone Protocol In Process Unspecified. EDMS 23:26 US Abdomen Limited: gallbladder In Process Unspecified. EDMS 12/25 00:18 Andrei Branch MD is Referral Physician. cp 00:46 No provider procedures requiring assistance completed. IV discontinued, intact, ha1 bleeding controlled, No redness/swelling at site. Pressure dressing applied. Administered Medications: 12/24 21:15 Drug: NS 0.9% IV 500 ml Route: IV; Rate: bolus; Site: right forearm; ha1 12/25 00:49 Follow up: Response: No adverse reaction; IV Status: Completed infusion; IV Intake: ha1 500ml 12/24 21:15 Drug: NS 0.9% IV 500 ml Route: IV; Rate: 125 ml/hr; Site: right forearm; ha1 12/25 00:48 Follow up: Response: No adverse reaction; IV Status: Completed infusion; IV Intake: ha1 350ml 12/24 21:15 Drug: Ondansetron IVP 4 mg Route: IVP; Site: right forearm; ha1 21:40 Follow up: Response: No adverse reaction ha1 21:18 Drug: morphine IVP or IV 4 mg Route: IVP; Infused Over: 4 mins; Site: right forearm; ha1 21:40 Follow up: Response: No adverse reaction; Pain is decreased; RASS: Alert and Calm (0) ha1 12/25 00:23 Drug: Rocephin IV 1 grams Route: IV; Rate: calculated rate; Site: right antecubital; ha1 00:47 Follow up: Response: No adverse reaction; IV Status: Completed infusion; IV Intake: 62qhtl1 00:44 Drug: GI Cocktail without - (Maalox PO Suspension 30 ml, Lidocaine Mucous ha1 Membrane Liquid 2 % 15 ml) Route: PO; 00:47 Follow up: Response: No adverse reaction ha1 00:44 Drug: Ciprofloxacin PO 500 mg Route: PO; ha1 00:47 Follow up: Response: No adverse reaction [facility] Medication: 00:47 VIS not applicable for this client. ha1 Intake: 00:47 IV: 50ml; Total: 50ml. ha1 00:48 IV: 350ml; Total: 400ml. ha1 00:49 IV: 500ml; Total: 900ml. ha1 Outcome: 00:18 Discharge ordered by . cp 00:46 Discharged to home ambulatory, with family. ha1 00:46 Condition: stable 00:46 Discharge instructions given to patient, family, Instructed on discharge instructions, follow up and referral plans. medication usage, Demonstrated understanding of instructions, follow-up care, medications, Prescriptions given X 3. 00:49 Patient left the ED. ha1 Signatures: Dispatcher [employer] EDMS Alcides Cristina PA PA cp Calcote, Vanessa, RN RN 1 Michaela Villafana RN RN 1 Francesca Chavez Corrections: (The following items were deleted from the chart) 12/24 19:37 19:34 Allergies: No Known Allergies; [place] [id number]
--- NOTE | 2022-12-25 00:19 | EDPHYS ---
Physician Documentation [facility] Name: Idalia Rangel Age: 57 yrs Sex: Female : 1965 Arrival Date: 12/24/2022 Time: 18:36 Bed 19 Private MD: ED Physician Domenic Patrick HPI: 12/24 20:10 This 57 yrs old Female presents to ER via Ambulatory with complaints of Low Back Pain. cp 20:10 The patient presents with pain that is acute, with no known mechanism of injury. The cp symptoms are located in the mid back. The problem was sustained from unknown cause. Onset: The symptoms/episode began/occurred last week. Associated signs and symptoms: Pertinent positives: abdominal pain, dysuria, Pertinent negatives: chest pain, constipation, fever, hematuria, vomiting, weakness. Severity of symptoms: in the emergency department the symptoms are unchanged, despite home interventions. Historical: - Allergies: 19:34 Latex, Natural Rubber; vc1 - Home Meds: 19:34 Estradiol Oral [Active]; Gemtesa 75 mg oral tablet daily [Active]; Neuriva Original vc1 oral [Active]; Zyrtec Oral [Active]; - PMHx: 19:34 None; vc1 - PSHx: 19:34 Gastric Bypass; vc1 - Immunization history:: Client reports receiving the 2nd dose of the Covid vaccine. - Social history:: Smoking status: Patient denies any tobacco usage or history of. ROS: 20:15 Constitutional: Negative for body aches, chills, fever, poor PO intake. cp 20:15 Eyes: Negative for injury, pain, redness, and discharge. cp 20:15 ENT: Negative for drainage from ear(s), ear pain, sore throat, difficulty swallowing, difficulty handling secretions. 20:15 Cardiovascular: Negative for chest pain, edema, palpitations. 20:15 Respiratory: Negative for cough, shortness of breath, wheezing. 20:15 Abdomen/GI: Positive for abdominal pain, nausea, Negative for diarrhea, constipation, active vomiting. 20:15 Back: Positive for pain at rest, pain with movement, of the left mid back. 20:15 : Negative for urinary symptoms. 20:15 Neuro: Negative for altered mental status, dizziness, headache, numbness, syncope, weakness. 20:15 All other systems are negative. Exam: 20:20 Constitutional: The patient appears in no acute distress, alert, awake, cp non-diaphoretic, non-toxic, well developed, well nourished, uncomfortable. 20:20 Head/Face: Normocephalic, atraumatic. cp 20:20 Eyes: Periorbital structures: appear normal, Conjunctiva: normal, no exudate, no injection, Sclera: no appreciated abnormality, Lids and lashes: appear normal, bilaterally. 20:20 ENT: External ear(s): are unremarkable, Nose: is normal, Mouth: Lips: moist, Oral mucosa: pink and intact, moist, Posterior pharynx: is normal, airway is patent, no erythema, no exudate. 20:20 Neck: ROM/movement: is normal, is supple, without pain, no range of motions limitations. 20:20 Chest/axilla: Inspection: normal. 20:20 Cardiovascular: Rate: normal, Rhythm: regular. 20:20 Respiratory: the patient does not display signs of respiratory distress, Respirations: normal, no use of accessory muscles, no retractions, labored breathing, is not present, Breath sounds: are clear throughout, no decreased breath sounds, no stridor, no wheezing. 20:20 Abdomen/GI: Inspection: abdomen appears normal, Bowel sounds: active, all quadrants, Palpation: soft, in all quadrants, moderate abdominal tenderness, in the epigastric area and right upper quadrant, rebound tenderness, is not appreciated, involuntary guarding, is not appreciated. 20:20 Back: pain, that is moderate, of the left mid back, ROM is normal. 20:20 Skin: no rash present. 20:20 Neuro: Orientation: to person, place \T\ time. Mentation: is normal. Vital Signs: 19:32 BP 126 / 88; Pulse 94; Resp 18; Temp 99.1; Pulse Ox 100% ; Weight 77.11 kg; Height 5 vc1 ft. 5 in. ; Pain 10/10; 21:00 BP 157 / 79; Pulse 85; Resp 16; Pulse Ox 98% on R/A; ha1 22:00 BP 133 / 74; Pulse 78; Resp 17 S; Pulse Ox 98% on R/A; ha1 23:00 BP 128 / 74; Pulse 75; Resp 18 S; Pulse Ox 98% on R/A; ha1 07/08 00:00 BP 108 / 74; Pulse 79; Resp 18 S; Pulse Ox 98% on R/A; ha1 12/24 19:32 Body Mass Index 28.29 (77.11 kg, 165.1 cm) vc1 12/24 19:32 Pain Scale: Adult vc1 MDM: 12/24 19:32 Patient medically screened. cp 21:00 Differential diagnosis: Herniated disc UTI, cholelithiasis, cholecystitis, cp pancreatitis, kidney stone. 12/25 00:17 Data reviewed: vital signs, nurses notes, lab test result(s), radiologic studies, CT cp scan, ultrasound. 00:17 Consideration of Admission/Observation Escalation of care including cp admission/observation considered. I considered the following discharge prescriptions or medication management in the emergency department Medications were administered in the Emergency Department. See MAR. Counseling: I had a detailed discussion with the patient and/or guardian regarding: the historical points, exam findings, and any diagnostic results supporting the discharge/admit diagnosis, lab results, radiology results, the need for outpatient follow up, a general surgeon, to return to the emergency department if symptoms worsen or persist or if there are any questions or concerns that arise at home. Response to treatment: the patient's symptoms have markedly improved after treatment, and as a result, I will discharge patient. Special discussion: Based on the patient's Hx, exam, and Dx evaluation, there is no indication for emergent surgery or inpatient Tx. It is understood by the patient/guardian that if the Sx's persist or worsen they need to return immediately for re-evaluation. 12/24 19:59 Order name: CBC with Diff; Complete Time: 22:41 cp 12/24 22:42 Interpretation: Normal except: WBC 13.70; HGB 11.9; HCT 35.4; BELEN% 77.2; LYM% 13.3; cp NEUT A 10.6. 12/24 19:59 Order name: CMP; Complete Time: 22:41 cp 12/24 22:42 Interpretation: Normal except: GFR 69. cp 12/24 19:59 Order name: Lipase; Complete Time: 22:41 cp 12/24 19:59 Order name: Test, Urine; Complete Time: 21:04 cp 12/24 19:59 Order name: Urinalysis w/ reflexes; Complete Time: 21:04 cp 12/24 21:04 Interpretation: Normal except: [facility] Turbid; UKET 1+; UBLD 3+; UPROT 1+; UESTR 250; UWBC cp 20-50; URBC 11-20; BYST Trace. 12/24 20:54 Order name: Urine Culture EDMS 12/24 21:05 Order name: CT Stone Protocol; Complete Time: 22:41 cp 12/24 22:43 Order name: US Abdomen Limited: gallbladder cp 12/24 19:59 Order name: IV Saline Lock; Complete Time: 21:06 cp 12/24 19:59 Order name: Labs collected and sent; Complete Time: 21:32 cp 12/24 22:43 Order name: NPO; Complete Time: 22:56 cp 12/25 00:01 Order name: PO challenge; Complete Time: 00:44 cp Administered Medications: 12/24 21:15 Drug: NS 0.9% IV 500 ml Route: IV; Rate: bolus; Site: right forearm; [facility] 12/25 00:49 Follow up: Response: No adverse reaction; IV Status: Completed infusion; IV Intake: ha1 500ml 12/24 21:15 Drug: NS 0.9% IV 500 ml Route: IV; Rate: 125 ml/hr; Site: right forearm; 1 12/25 00:48 Follow up: Response: No adverse reaction; IV Status: Completed infusion; IV Intake: ha1 350ml 12/24 21:15 Drug: Ondansetron IVP 4 mg Route: IVP; Site: right forearm; ha1 21:40 Follow up: Response: No adverse reaction 1 21:18 Drug: morphine IVP or IV 4 mg Route: IVP; Infused Over: 4 mins; Site: right forearm; ha1 21:40 Follow up: Response: No adverse reaction; Pain is decreased; RASS: Alert and Calm (0) [facility] 12/25 00:23 Drug: Rocephin IV 1 grams Route: IV; Rate: calculated rate; Site: right antecubital; 1 00:47 Follow up: Response: No adverse reaction; IV Status: Completed infusion; IV Intake: [id number] 00:44 Drug: GI Cocktail without - (Maalox PO Suspension 30 ml, Lidocaine Mucous ha1 Membrane Liquid 2 % 15 ml) Route: PO; 00:47 Follow up: Response: No adverse reaction 1 00:44 Drug: Ciprofloxacin PO 500 mg Route: PO; ha1 00:47 Follow up: Response: No adverse reaction ha1 Disposition Summary: 12/25/22 00:18 Discharge Ordered Location: Home cp Problem: new cp Symptoms: have improved cp Condition: Stable cp Diagnosis - Other cholelithiasis without obstruction cp - UTI/ Urinary tract infection, site not specified cp Followup: cp - With: Andrei Branch MD - When: 2 - 3 days - Reason: cholelithiasis Discharge Instructions: - Discharge Summary Sheet cp - Urinary Tract Infection, Adult cp - Cholelithiasis cp Forms: - Medication Reconciliation Form cp - Thank You Letter cp - Antibiotic Education cp - Prescription Opioid Use cp - [email or web address] cp Prescriptions: - Zofran 4 mg Oral Tablet - take 1 tablet by ORAL route every 12 hours As needed; 20 tablet; Refills: 0, cp Product Selection Permitted - Cipro 500 mg Oral Tablet - take 1 tablet by ORAL route every 12 hours for 7 days; 14 tablet; Refills: 0, cp Product Selection Permitted - dicyclomine 20 mg Oral Tablet - take 1 tablet by ORAL route 4 times per day; 30 tablet; Refills: 0, Product cp Selection Permitted Addendum: 12/27/2022 10:47 Co-signature as Attending Physician, Domenic Patrick MD I reviewed the patient's care r n provided by the Advanced Practice Provider and agree with the diagnosis and treatment plan. Signatures: Dispatcher [employer] Domenic Galo MD MD rn Page, Corey, PA PA cp Mali Mclain RN RN 1 Michaela Villafana RN RN ha1 Corrections: (The following items were deleted from the chart) 12/24 19:37 19:34 Allergies: No Known Allergies; vc1 vc1
[2022-12-25] MEDS ORDERED: NA CHLORIDE 0.9% 50 ML ONE (00:23)
[2022-12-25] MEDS ORDERED: CEFTRIAXONE 1000 MG/VIAL ONE (00:23)
[2022-12-25] MEDS ORDERED: MAGNES/ALUMIN/SIMET 30ML UCUP ONE (00:41)
[2022-12-25] MEDS ORDERED: CIPROFLOXACIN HCL 500 MG TAB ONE (00:41)
[2022-12-25 02:42] VITALS: TEMP 99.1
[2022-12-25 02:43] VITALS: O2SAT 98
[2022-12-25 02:47] VITALS: BP 108/74
--- NOTE | 2022-12-25 23:18 | RAD REPORT ---
EXAM DESCRIPTION: US - Abdomen Exam Limited - 12/24/2022 11:25 pm CLINICAL HISTORY: 57 years Female, mid back pain TECHNIQUE: Real-time transabdominal imaging of the right upper quadrant was performed. COMPARISON: None. FINDINGS: GALLBLADDER: Multiple shadowing gallstones. No abnormal wall thickening or pericholecystic fluid. Sonographic Beth sign: Negative. CBD/BILE DUCT: The common bile duct is not dilated, measuring 5 mm. No intra- or extrahepatic ducta l dilatation. OTHER: Noncontributory. IMPRESSION: 1. Cholelithiasis without sonographic evidence for cholecystitis. Electronically signed by: Michael Dukes MD 12/24/2022 11:52 PM CDT Due to temporary technical issues with the PACS/Fluency reporting system, reports are being signed by the in house radiologists without review as a courtesy to insure prompt reporting. The interpreting radiologist is fully responsible for the content of the report.
== END 2022-12-25 00:49 | disposition home or self-care (01) ==
LOC: ER 18:36
DX: N39.0 Urinary tract infection, site not specified (principal); K80.80 Other cholelithiasis without obstruction; Z91.040 Latex allergy status; Z98.84 Bariatric surgery status
CPT/HCPCS: 96365; 96361; 87088; 85025; 81001; 87086; 36415; 81025; 83690; 80053; 76377; 74176; 76705; 96375; 99284; J2405; J7040; J0696